=== PATIENT | female | born 1940 | race Asian ===

== ENCOUNTER → 2019-09-25 | Outpatient (CLI) | payer MEDICARE, OTHER ==
[~2019-09-25] MED LIST: LEVO75TA4 PO; SIMV-259 PO
== END | disposition home or self-care (01) ==
LOC: RADPV 10:04
PROVIDERS: ATTEND Legal Medicine
DX: M47.22 Other spondylosis with radiculopathy, cervical region (principal); M85.88 Other specified disorders of bone density and structure, other site
CPT/HCPCS: 72040

== ENCOUNTER 2023-06-24 11:28 | Emergency (ER) | payer MEDICARE, OTHER ==
[~2023-06-24] VITALS: Ht 152.4 cm; Wt 52.3 kg
[2023-06-24 11:30] VITALS: TEMP 98.8
[2023-06-24] MEDS ORDERED: PERTUSS(ACELL),DIPH,TET VAC/PF 0.5 ML SYRINGE IM. ONE (12:30)
[2023-06-24] MEDS ORDERED: LIDOCAINE 1% 10 ML VIAL SQ ONE (12:30)
[2023-06-24] MEDS ORDERED: CEPH-558 PO (13:23)
[2023-06-24 14:10] VITALS: BP 144/77; PULSE 99; RESP 18
== END 2023-06-24 14:20 | disposition home or self-care (01) ==
LOC: EMS 11:30
DX: S61.214A Laceration without foreign body of right ring finger without damage to nail, initial encounter (principal); S61.212A Laceration without foreign body of right middle finger without damage to nail, initial encounter; E03.9 Hypothyroidism, unspecified; Z88.2 Allergy status to sulfonamides; Z88.8 Allergy status to other drugs, medicaments and biological substances; W26.8XXA Contact with other sharp object(s), not elsewhere classified, initial encounter; Y93.89 Activity, other specified; Y92.89 Other specified places as the place of occurrence of the external cause; Y99.8 Other external cause status
CPT/HCPCS: 99283; 90715; 90471; J3490

== ENCOUNTER 2023-06-27 08:42 | Emergency (ER) | payer MEDICARE, OTHER ==
[~2023-06-27] VITALS: Ht 144.8 cm; Wt 52.3 kg
[~2023-06-27 08:42] MED LIST changes: +CEPH-558 PO
[2023-06-27 09:06] VITALS: TEMP 98.1
[2023-06-27 09:50] VITALS: BP 148/74; PULSE 64; RESP 16
== END 2023-06-27 10:06 | disposition home or self-care (01) ==
LOC: EMS 08:46
DX: S61.212D Laceration without foreign body of right middle finger without damage to nail, subsequent encounter (principal); E03.9 Hypothyroidism, unspecified; Z88.2 Allergy status to sulfonamides; Z88.8 Allergy status to other drugs, medicaments and biological substances; Z91.018 Allergy to other foods; X58.XXXD Exposure to other specified factors, subsequent encounter
CPT/HCPCS: 99281; Z7502